=== PATIENT | female | born 1970 | race Caucasian/White ===

== ENCOUNTER 2016-11-13 12:02 | Outpatient (CLI) | END 2016-11-13 12:03 | disposition home or self-care (01) | LOC: LAB 12:02 | PROVIDERS: ATTEND Nurse Practitioner Family | DX: J02.9 Acute pharyngitis, unspecified (principal) | CPT/HCPCS: 87651; 87880 ==

== ENCOUNTER 2018-01-15 13:20 | Outpatient (CLI) ==
[2018-01-15 14:16] VITALS: BMI 35.2
== END 2018-01-15 13:21 | disposition left against medical advice (07) ==
LOC: AMBL 13:20
PROVIDERS: ATTEND Internal Medicine
DX: Z04.1 Encounter for examination and observation following transport accident (principal)

== ENCOUNTER 2018-01-15 14:01 | Emergency (ER) ==
[2018-01-15 14:16] VITALS: BP 166/95; TEMP 99.7; BMI 35.2
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
--- NOTE | 2018-01-15 15:35 | CT ---
EXAM: CT Head HISTORY: Injury COMPARISON: None TECHNIQUE: CT head performed without contrast FINDINGS: There is no mass effect, midline shift, or intracranial hemmorhage. Muse white differenti ation is preserved. There is no extra-axial collection. The ventricles, sulci, and basal cisterns a re patent and symmetric. There is no depressed calvarial fracture. The mastoid air cells are clear. The visualized paranasal sinuses are clear. IMPRESSION: No acute intracranial abnormality.
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
== END 2018-01-15 15:57 | disposition home or self-care (01) ==
LOC: ED 14:01
DX: M54.2 Cervicalgia (principal); R51 Headache; V89.2XXA Person injured in unspecified motor-vehicle accident, traffic, initial encounter
CPT/HCPCS: 81025; 99284

== ENCOUNTER 2018-09-09 12:57 | Outpatient (CLI) | END 2018-09-09 12:58 | disposition home or self-care (01) | LOC: LAB 12:57 | PROVIDERS: ATTEND Family Medicine | DX: M25.50 Pain in unspecified joint (principal); E66.9 Obesity, unspecified; Z00.00 Encounter for general adult medical examination without abnormal findings; Z82.3 Family history of stroke | CPT/HCPCS: 36415; 80053; 80061; 84443; 85025; 85651; 86038; 86430 ==